=== PATIENT | male | born 1955 | race Caucasian/White ===

== ENCOUNTER 2018-11-04 07:56 | Emergency (ER) | payer OTHER ==
[~2018-11-04] VITALS: Ht 162.6 cm; Wt 77.1 kg
[~2018-11-04 07:56] MED LIST: LOSARTAN-HCTZ1 EACH; ZOCOR20 MG
== END 2018-11-04 09:33 | disposition home or self-care (01) ==
LOC: ER 07:56
DX: L02.414 Cutaneous abscess of left upper limb (principal); B95.7 Other staphylococcus as the cause of diseases classified elsewhere

== ENCOUNTER 2021-03-08 08:22 | Emergency (ER) | payer OTHER ==
[~2021-03-08] VITALS: Ht 175.3 cm; Wt 72.6 kg
[2021-03-08] MEDS ORDERED: KETO10TA2 PO (09:43)
[2021-03-08] MEDS ORDERED: INTESTINEX680 M1 PO (09:43)
[2021-03-08] MEDS ORDERED: AMOX-CLAV 875-1 EAC1 PO (09:43)
[2021-03-08] MEDS ORDERED: PERIDEX473 ML PO (09:43)
== END 2021-03-08 10:22 | disposition home or self-care (01) ==
LOC: ER 08:22
DX: K04.7 Periapical abscess without sinus (principal); K05.11 Chronic gingivitis, non-plaque induced